=== PATIENT | male | born 1985 | race Caucasian/White ===

== ENCOUNTER 2023-10-07 06:56 | Inpatient (IN) ==
[2023-10-07] MEDS: SODIUM CHLORIDE 0.9% 1,000 ML IV SCH ×2 (07:17→11:27)
--- NOTE | 2023-10-07 07:24 | Emergency Department Note ---
History of Present Illness General Chief complaint: Overdose (Intentional) Stated complaint: OVERDOSE Time Seen by Provider: 10/07/23 07:03 Source: patient, family (Girlfriend who is at the bedside), EMS (I did talk to them and gave ALS prehospital medical command), RN notes reviewed and old records reviewed (10/05/23-primary care office visit for anxiety/depression) Mode of arrival: EMS History of Present Illness This patient is 38-year-old male who took an intentional overdose of Seroquel between 5 and 530 this morning there were 18 or 19 missing from a new bottle of 300 mg. Denies any coingestions. He tells me he was trying to get high. He comes in and he initially was a little bit agitated but now seems very calm he does answer questions appropriately seems mildly sleepy. Denies any physical complaints. Denies any coingestions drugs or alcohol. Home Medications Medication Instructions Recorded Confirmed Type multivitamin 1 tab PO DAILY 09/24/23 09/24/23 History quetiapine 300 mg tablet (Seroquel) 300 mg PO HS PRN insomnia #30 tabs 09/24/23 09/24/23 Rx trazodone 300 mg tablet 300 mg PO HS PRN insomnia #30 tabs 09/24/23 09/24/23 Rx Allergies Allergy/AdvReac Type Severity Reaction Status Date / Time No Known Drug Allergies Allergy Mild Verified 09/24/23 08:23 Past Med/Surg History Problem List (Updated 10/07/23 @ 09:13 by Tory Marina DO) Elevated CK Sinus tachycardia (Acute) Overdose (Acute) Elevated LFTs Anxiety and depression (Acute) Pain, dental GERD (gastroesophageal reflux disease) Vapes nicotine containing substance Alcohol dependence, binge pattern History of methamphetamine use (Acute) Bipolar 2 disorder, major depressive episode Posttraumatic stress disorder Acute insomnia Family History Mother Breast cancer Skin cancer Social History Smoking Status: Never smoker Tobacco Type: E-cigarettes / Vaping Age Started Using Tobacco: 11; Second Hand Exposure: Yes; Do You Dip or Chew Tobacco: No; Hx Alcohol Use: Yes Alcohol type: beer and hard liquor Alcohol Intake Frequency: 2-3 x/Week Hx Substance Use: No Preferred Language: [place] Citizen Communication Ability: Effective Visual Impairment: No Limitations Hearing Ability: Normal Piston Maker Required: No Beliefs That Will Affect Care: None marital status: Single Current Living Situation: Other Current Living Situation Comment: Roommate current occupational status: employed How many Children do You have: 2 Feels Safe at Home: Yes Childhood Exposure to Second-Hand Smoke: Yes Diet: regular caffeine: Yes during the past year weight has: remained stable Dental Care, Regularly: No Physical Activity Frequency: Daily Seatbelt Use: always Sunscreen Use: Yes Do you think of yourself as: straight/heterosexual Sexual Activity: has been sexually active within the last 12 months Gender Identity: Male Assistive Devices: None Review of Systems A total of 10 systems reviewed and were otherwise negative Physical Exam Vital Signs Vital Signs - 24 hr 10/07/23 07:00 10/07/23 07:02 10/07/23 07:02 Temperature 36.6 C Temperature Source Oral Pulse Rate 111 H 113 H Pulse Rate from SpO2 Sensor Respiratory Rate 12 Respiratory Depth Normal Blood Pressure 98/61 L 97/53 L Blood Pressure Mean 77 67 Pulse Oximetry 96 Oxygen Delivery Method Room Air Sepsis Recent Fever Within 48 Hours No Sepsis New/Unexplained Change in Mental Status No Sepsis Action Taken by Nursing No Action Required 10/07/23 07:03 10/07/23 07:04 10/07/23 07:04 Temperature Temperature Source Pulse Rate 114 H Pulse Rate from SpO2 Sensor 112 H Respiratory Rate 14 Respiratory Depth Blood Pressure 97/52 L 97/52 L Blood Pressure Mean 58 58 Pulse Oximetry 97 Oxygen Delivery Method Sepsis Recent Fever Within 48 Hours Sepsis New/Unexplained Change in Mental Status Sepsis Action Taken by Nursing 10/07/23 07:07 10/07/23 07:16 10/07/23 07:44 Temperature Temperature Source Pulse Rate 107 H Pulse Rate from SpO2 Sensor 106 H Respiratory Rate 11 L Respiratory Depth Normal Blood Pressure Blood Pressure Mean Pulse Oximetry 95 96 Oxygen Delivery Method Room Air Sepsis Recent Fever Within 48 Hours Sepsis New/Unexplained Change in Mental Status Sepsis Action Taken by Nursing 10/07/23 07:47 10/07/23 08:00 10/07/23 08:02 Temperature Temperature Source Pulse Rate 102 H 103 H Pulse Rate from SpO2 Sensor 102 H 104 H Respiratory Rate 8 L 8 L Respiratory Depth Blood Pressure 140/71 Blood Pressure Mean 79 Pulse Oximetry 97 97 Oxygen Delivery Method Sepsis Recent Fever Within 48 Hours Sepsis New/Unexplained Change in Mental Status Sepsis Action Taken by Nursing General: Well developed well nourished young male who appears mildly sleepy but answers all questions appropriate alert and orient x 3 protecting his airway, in no acute distress, breathing comfortably on room air. Normal speech HEENT: Normal cephalic atraumatic. Pupils are equal round and reactive to light. Extraocular movements are intact. Oropharynx is pink with moist mucous membranes. No swelling of the mouth lips or tongue. Neck: Supple with a midline trachea. No meningeal signs or stiffness, no JVD or bruits. No Stridor. Chest: Clear to auscultation bilaterally. No wheezes or rhonchi. No increased work of breathing. Heart: Regular rate and rhythm without murmurs or gallops. Abdomen: Soft nontender, nondistended without rebound guarding or rigidity. Extremities: No cyanosis clubbing or edema. No calf tenderness or assymetry Spine/Back. Non tender to palpation. No CVA tenderness Skin: Good turgor without rashes. Neurologic exam: Cranial nerves two through 12 are intact. Motor and sensation are intact and symmetrical throughout. No tremor Course Administered Medications Sodium Chloride (Nss) 1,000 mls @ 125 mls/hr IV .Q8H [facility] Stop: 10/08/23 00:44 Last Admin: 10/07/23 11:27 Dose: 125 mls/hr Documented By: LISA Discontinued Medications Sodium Chloride (Nss) 1,000 mls @ 999 mls/hr IV .Q1H1M [facility] Stop: 10/07/23 08:15 Last Infusion: 10/07/23 08:59 Dose: Infused Documented By: Admin: 10/07/23 07:17 Dose: 999 mls/hr Documented By: CATERINA Sodium Chloride (Nss) 1,000 mls @ 999 mls/hr IV .Q1H1M ONE Stop: 10/07/23 08:50 Last Infusion: 10/07/23 08:59 Dose: Infused Documented By: Admin: 10/07/23 07:55 Dose: 999 mls/hr Documented By: CATERINA Critical Care Time Critical Care Time: Yes Total Critical Care Time: 38 Due to the patient's overdose, continuing monitoring and need for further monitoring treatment and evaluation, I have personally spent greater than 38 minutes of critical care time in the direct management of this patient. This includes bedside care, interpretation of diagnostic studies, and testing, discussion with consultants, patient, and family members, and other required patient management activities. This 38 minutes is in excess of all separately billable procedures. Medical Decision Making Differential Diagnosis Overdose, intentional overdose, seizures, electrolyte or metabolic abnormality, infection, toxicologic, metabolic, depression Medical Records Attestation: I reviewed the patient's medical records. Home Medications Current Medication List: was personally reviewed by me Laboratory Data Attestation: I reviewed the patient's lab results. 10/07/23 07:14 10/07/23 07:14 Lab Results 10/07/23 Range/Units 07:14 WBC 7.77 (4.8-10.8) K/ul RBC 4.31 L (4.70-6.10) M/uL Hgb 14.0 (14.0-18.0) g/dl Hct 40.1 L (42.0-52.0) % MCV 93.0 (80.0-100.0) fL MCH 32.5 (25.0-34.0) pg MCHC 34.9 (32.0-36.0) g/dL RDW Std Deviation 45.7 (36.4-46.3) fL RDW Coeff of [place] 13.2 (11.5-14.5) % Plt Count 204 (130-400) K/uL MPV 9.6 (9.4-12.4) fL Immature Gran % (Auto) 0.3 % Neut % (Auto) 76.6 % Lymph % (Auto) 14.4 % Kinney % (Auto) 7.5 % Eos % (Auto) 0.6 % Baso % (Auto) 0.6 % Neut # (Auto) 5.95 (1.40-6.50) K/uL Lymph # (Auto) 1.12 L (1.20-3.40) K/uL Kinney # (Auto) 0.58 (0.11-0.59) K/uL Eos # (Auto) 0.05 (0.00-0.50) K/uL Baso # (Auto) 0.05 (0.00-0.20) K/uL Immature Gran # (Auto) 0.02 (0.01-0.20) K/uL PT 11.1 (9.0-12.0) Seconds INR 1.0 (0.9-1.1) Sodium 138 (136-145) mmol/L Potassium 4.2 (3.5-5.1) mmol/L Chloride 105 (98-107) mmol/L Carbon Dioxide 24 (21-32) mmol/L Anion Gap 9 (3-11) BUN 21 (6-23) mg/dl Creatinine 1.05 (0.6-1.4) mg/dl Est Cr Clr Drug Dosing 134.0 ml/min Est GFR ( Amer) 105.3 ml/min Est GFR (Non-Af Amer) 90.9 ml/min BUN/Creatinine Ratio 20.0 (10-20) Glucose 116 H (70-99(Fasting)) mg/dl Calcium 8.8 (8.6-10.3) mg/dl Magnesium 1.8 (1.7-2.4) mg/dl Total Bilirubin 0.5 (0.2-1.0) mg/dl AST 28 (13-39) U/L ALT 24 (7-52) U/L Alkaline Phosphatase 76 (34-104) U/L Total Creatine Kinase 596 H (30-223) U/L Troponin I High Sens 4.6 (0-20) pg/ml Total Protein 7.1 (6.0-8.3) gm/dl Albumin 4.6 (3.4-5.0) gm/dl Globulin 2.5 (2.5-4.0) gm/dl Albumin/Globulin Ratio 1.8 (0.9-2) Lipase 13 (11-82) U/L Salicylates < 3.0 L (3.0-30) mg/dl Acetaminophen < 3 L (10-30) ug/ml Ethyl Alcohol mg/dL < 10.0 (<10.0) mg/dl Imaging Data Attestation: I personally reviewed and interpreted this imaging study as follows: My Impression: Chest x-rayno acute infiltrate, failure, pneumothorax seen Radiologist's Impression: Chest X-Ray 10/07/23 07:07 XR chest 1V portable CLINICAL HISTORY: overdose TECHNIQUE: Single frontal radiograph of the chest was obtained. Comparison: None available at the time of this dictation. FINDINGS: No lines and tubes are seen. The cardiomediastinal silhouette is normal. The lungs are clear. No evidence of pleural effusion or pneumothorax. IMPRESSION: No acute chest disease. ACT 112: Negative or not required by law. Electronically signed by: Puma Noguera M.D. 10/07/2023 7:23 AM ECG Data Attestation: I personally reviewed and interpreted this ECG as follows: Indication: + toxicologic Rate (beats per minute): 112 Rhythm: + sinus tachycardia ECG Intervals/blocks: + Normal QRS, + Normal OK and + Normal QT-c ECG [place]: + Normal ECG ST segments: + Normal ST segments ECG Findings: no PACs or no PVCs Comparison ECG Date: no prior available Additional Comments: EKG #2: Sinus tachycardia rate of 105 no acute ischemic changes or ectopy. Normal QRS and QTc intervals. No change compared EKG number MDM Narrative This patient comes in as described above I did take ALS medical command the patient was placed in room B1 initially so we could evaluate him there and assess him. He seems stable upon arrival we did apply seizure precautions given the fact he took Seroquel. A full workup was obtained he was hydrated with normal saline boluses. I did talk to Lalita at the [place] [facility] she tells me that we need to watch him for 8 hours and if he is medically cleared at that point he can be cleared to psychiatry. At this point, she says is supportive care and benzos if he is agitated or seizes. He has no white count or fever to suggest infection. He has no significant anemia. His girlfriend did arrive and she is at the bedside. I talked to her at length as well. He has no fever or white count to suggest infection. He has no significant anemia. He has no significant electrolyte or metabolic abnormalities. CK is mildly elevated in the 500s he has been hydrated with IV normal saline. He has no significant toxicologic or metabolic abnormalities on the blood work. He remains very somnolent but does wake up he is continues to protect his airway. I did a repeat EKG and it shows no change in his intervals. Given his somnolence and need for multiple hours for medical clearance, I do think medical admission is warranted and then psychiatric evaluation after he is medically clear. I have discussed case with the hospitalist and they will observe/admit him for these measures. Continuous manager fixed income: Orders placed in EMR for continuous manager fixed income call upon my evaluation patient noted to be in sinus tachycardia with a rate of 110 Impression & Plan Overdose, History of methamphetamine use, Anxiety and depression, Sinus tachycardia Discharge Plan Visit Data Chief Complaint: Overdose (Intentional) Stated Complaint: OVERDOSE ED Provider: Dipak Liao Discharge Problem: Overdose, History of methamphetamine use, Anxiety and depression, Sinus tachycardia Discharge Instructions Interventions: ED Discharge Assessment Last Done: 10/07/23 10:32
[2023-10-07 07:29] LABS: Basophils # (auto) 0.05 K/uL (0.00-0.20); Basophils % (auto) 0.6 %; Eosinophils # (auto) 0.05 K/uL (0.00-0.50); Eosinophils % (auto) 0.6 %; Hematocrit (blood only) 40.1 % (42.0-52.0); Immature Granulocytes # (auto) 0.02 K/uL (0.01-0.20); Immature Granulocytes % (auto) 0.3 %; Lymphocytes # (auto) 1.12 K/uL (1.20-3.40); Lymphocytes % (auto) 14.4 %; Mean Corpuscular Hemoglobin 32.5 pg (25.0-34.0); Mean Corpuscular Hgb Conc 34.9 g/dL (32.0-36.0); Mean Platelet Volume 9.6 fL (9.4-12.4); Monocytes # (auto) 0.58 K/uL (0.11-0.59); Monocytes % (auto) 7.5 %; Neutrophils # (auto) 5.95 K/uL (1.40-6.50); Neutrophils % (auto) 76.6 %; Platelet Count 204 K/uL (130-400); RDW Coefficient of Variation 13.2 % (11.5-14.5); RDW Standard Deviation 45.7 fL (36.4-46.3); Red Blood Count 4.31 M/uL (4.70-6.10); White Blood Count 7.77 K/ul (4.8-10.8)
[2023-10-07 07:45] LABS: Albumin Globulin Ratio 1.8 (0.9-2); Albumin Level 4.6 gm/dl (3.4-5.0); Bilirubin,Total 0.5 mg/dl (0.2-1.0); Calcium 8.8 mg/dl (8.6-10.3); Est GFR (African American) 105.3 ml/min; Est GFR (Non-African American) 90.9 ml/min; Globulin 2.5 gm/dl (2.5-4.0); Magnesium 1.8 mg/dl (1.7-2.4); Potassium 4.2 mmol/L (3.5-5.1); Total Protein 7.1 gm/dl (6.0-8.3)
[2023-10-07 07:51] LABS: Troponin I High Sensitivity 4.6 pg/ml (0-20)
[2023-10-07] MEDS: SODIUM CHLORIDE 0.9% 1,000 ML IV ONE (07:55)
[2023-10-07 08:10] LABS: Prothrombin Time 11.1 Seconds (9.0-12.0)
[2023-10-07 08:18] LABS: Acetaminophen < 3 ug/ml (10-30); Salicylate < 3.0 mg/dl (3.0-30)
--- NOTE | 2023-10-07 08:54 | History & Physical Report ---
Date of Service October 07, 2023 Assessment & Plan (1) Overdose: Plan: - reported intentional overdose with Seroquel, limited history but no co- ingestion reported - initial acetaminophen/salicylate negative; repeat 4 hours after initial - per pt attempt to "get high", concern for SI per friend - QTc= 444; repeat EKG 1200- monitor on telemetry - seizure precautions - psych consulted, suicide precautions (2) Anxiety and depression: Plan: - hold Seroquel - psych consulted (3) Elevated CK: Plan: - mildly elevated CK; s/p 2L IVF in ED - continue maintenance fluids NSS @125ml/hr - repeat CK qAM (4) Alcohol dependence, binge pattern: Plan: - Unclear amount of alcohol pt is currently drinking - AWSS at risk protocol - supplement folate/thiamine (5) History of methamphetamine use: Plan: - unknown last time of use; UDS pending (6) Acute insomnia: Plan: - hold trazadone Plan Code: Full Diet: Regular VTE Prophylaxis: Lovenox History of Present Illness Primary Care Provider: Marla Trejo MD 38 year old male with a past medical history of LYDIA, MDD, bipolar 2, alcohol dependence, presenting with intensional overdose. He is arousable, but somnolent and answering minimal questions. History obtained from friend at bedside. At approximally 0500 this morning patient took about 19 300mg Seroquel. The prescription was filled yesterday and 19 were missing from the bottle. Friend notes that they were out at a bar last night and he has approximately 5 drinks. Unsure of amount of alcohol he drinks on average through out the week. Noted history of methamphetamine use, believes that last used 1 month ago. ED Course Significant for: CBC, CMP wnl. CK= 596. S/p 2L NSS. EKG with sinus tachycardia, QTc= 444. ED was in contact with poison control and recommend observation for at least 8 hours with serial EKGs. Allergies Allergy/AdvReac Type Severity Reaction Status Date / Time No Known Drug Allergies Allergy Mild Verified 09/24/23 08:23 Home Medications Medication Instructions Recorded Confirmed Type multivitamin 1 tab PO DAILY 09/24/23 09/24/23 History quetiapine 300 mg tablet (Seroquel) 300 mg PO HS PRN insomnia #30 tabs 09/24/23 09/24/23 Rx trazodone 300 mg tablet 300 mg PO HS PRN insomnia #30 tabs 09/24/23 09/24/23 Rx Past Med/Surg History Problem List (Updated 10/07/23 @ 09:13 by Tory Marina DO) Elevated CK Sinus tachycardia (Acute) Overdose (Acute) Elevated LFTs Anxiety and depression (Acute) Pain, dental GERD (gastroesophageal reflux disease) Vapes nicotine containing substance Alcohol dependence, binge pattern History of methamphetamine use (Acute) Bipolar 2 disorder, major depressive episode Posttraumatic stress disorder Acute insomnia Family History Mother Breast cancer Skin cancer Social History Smoking Status: Current every day smoker Tobacco Type: E-cigarettes / Vaping Age Started Using Tobacco: 11; Second Hand Exposure: Yes; Do You Dip or Chew Tobacco: No; Hx Alcohol Use: Yes Alcohol type: beer and hard liquor Alcohol Intake Frequency: 2-3 x/Week Hx Substance Use: Yes Preferred Language: Irish Communication Ability: Effective Visual Impairment: No Limitations Hearing Ability: Normal Dairy Farmer Required: No Beliefs That Will Affect Care: None marital status: Single Current Living Situation: Significant Other Current Living Situation Comment: Roommate current occupational status: employed How many Children do You have: 2 Feels Safe at Home: Yes Safety Concerns: Feels Safe At This Time Childhood Exposure to Second-Hand Smoke: Yes Diet: regular caffeine: Yes during the past year weight has: remained stable Dental Care, Regularly: No Physical Activity Frequency: Daily Seatbelt Use: always Sunscreen Use: Yes Do you think of yourself as: straight/heterosexual Sexual Activity: has been sexually active within the last 12 months Gender Identity: Male Assistive Devices: None Review of Systems Review of Systems: As per HPI Physical Exam Physical Exam: Constitutional: well-appearing, no acute distress HEENT: NCAT, no conjunctival injection, pinpoint pupils, PERRLA CV: regular rhythm, no murmur appreciated, extremities well-perfused, no LE edema Resp: CTABL, no wheezes/rales/rhonchi appreciated, no increased work of breathing GI: soft, nondistended, nontender MSK: no gross deformities appreciated Skin: warm, dry, no rash appreciated Neuro: alert, oriented, no focal neurologic deficit appreciated Results & Data Results & Data Vital Signs (Past 12 Hours) Vital Signs Temp Pulse Resp BP Pulse Ox O2 Del Method 10/07/23 08:27 105 H 10 L 97 10/07/23 08:02 103 H 8 L 97 10/07/23 08:00 140/71 10/07/23 07:47 102 H 8 L 97 10/07/23 07:44 107 H 11 L 96 10/07/23 07:16 95 Room Air 10/07/23 07:04 97/52 L 10/07/23 07:04 97/52 L 10/07/23 07:03 114 H 14 97 10/07/23 07:02 113 H 10/07/23 07:02 36.6 C 111 H 12 97/53 L 96 Room Air 10/07/23 07:00 98/61 L Supervising Physician Co-Signing Physician Notes I personally examined the patient and verified all bowers points of history and exam, discussed case, and agree with decision making with Dr Marina no meaningful HPI or ROS obtainable from pt. psychiatry input appreciated vitals noted awakens speaks a little bit in slurred ininteligable words but then drifts off. cardio reg no r/m/g lungs cta b/l no rrw good effort skin without rashes/pallor/icterus neuro without focal deficits/lateralizing signs QT ok, VBG reassuring, neuro exam nonfocal. seroquel OD - repeated APAP/salicylate since HPI not really obtainable from pt and polysubstance ingestion was possible - fortunately repeat levels also negative. supportive care, follow closely. once more awake and alert, psych input Resident Activity Tracking Resident Involvement: Resident Care Provided Care Provided: Adult Hospital Medicine
[2023-10-07] MEDS ORDERED: LORazepam 1 MG in SYRINGE 0.5 ML IV PRN (11:23)
--- NOTE | 2023-10-07 12:21 | Electrocardiogram Report ---
Test Reason : Blood Pressure : / mmHG Vent. Rate : 112 BPM Atrial Rate : 112 BPM P-R Int : 136 ms QRS Dur : 084 ms QT Int : 326 ms P-R-T Axes : 076 061 057 degrees QTc Int : 444 ms Sinus tachycardia Poor R wave progression, consider anterior MD vs. lead placement vs. LVH Abnormal ECG No previous ECGs available Confirmed by Chinmay Barragan ([id number]) on 10/07/2023 12:20:29 PM Referred By: REFERRED SELF Confirmed By:Chinmay Barragan
--- NOTE | 2023-10-07 12:30 | Electrocardiogram Report ---
Test Reason : Blood Pressure : / mmHG Vent. Rate : 105 BPM Atrial Rate : 105 BPM P-R Int : 132 ms QRS Dur : 084 ms QT Int : 336 ms P-R-T Axes : 072 027 035 degrees QTc Int : 444 ms Sinus tachycardia Poor R wave progression, consider anterior AL vs. lead placement vs. LVH Abnormal ECG When compared with ECG of 07-OCT-2023 07:01, (unconfirmed) No significant change was found Confirmed by Chinmay Barragan ([id number]) on 10/07/2023 12:29:58 PM Referred By: REFERRED SELF Confirmed By:Chinmay Barragan
--- NOTE | 2023-10-07 12:44 | Communication Note ---
Date of Service: October 07, 2023 Trey Muse is a 38-year-old white male history of bipolar 2 disorder, PTSD, alcohol use disorder with binge episodes, methamphetamine use disorder and re cent remission, nicotine dependence who presents with an intentional overdose of 19 300 mg pills of Seroquel in the context of alcohol intoxication and social stressors. On exam patient was somnolent and unable to engage in interview. In and out of consciousness. Collateral from roommate/friend Shreya ([phone]): They were drinking at the bar. Patient got upset and walked 2 miles home. He stopped at his ex-girlfriend's home and found her with another male and was acutely upset and irritable. Back at their home she saw him take 19 out of the 30 Seroquel pills. She called 911. He attempted to vomit the pills but was unable to get the pills out. Made a statement indicating "do not want to be here anymore". Reports prior to this event patient was acting normally and was not overtly irritable or angry. Patient is on probation and had a recent stint in [facility] for violating a PFA against an ex-girlfriend. Past service, dishonorably discharged. Concern for trauma. Has 2 children. Completed rehab 2 years ago. Has been sober from methamphetamine since leaving [facility]. On probation with weekly check ins. Limited social supports. Plan: We will reevaluate patient once he is lucid and can engage in the interview.
[2023-10-07 13:22] LABS: Amphetamines+Metham, Urine Neg (Neg); Barbiturates, Urine Neg (Neg); Benzodiazepine, Urine Neg (Neg); Cocaine, Urine Neg (Neg); Fentanyl, Urine Neg (Neg); MDMA (Ecstacy), Urine Neg (Neg); Marijuana, Urine Neg (Neg); Methadone, Urine Neg (Neg); Opiate, Urine Neg (Neg); Phencyclidine, Urine Neg (Neg)
[2023-10-07] MEDS: FOLIC ACID 1 MG TAB PO SCH (13:33)
[2023-10-07] MEDS: THIAMINE HCL 100 MG TAB PO SCH (13:34)
[2023-10-07 13:46] LABS: Acetaminophen < 3 ug/ml (10-30); Salicylate < 3.0 mg/dl (3.0-30)
[2023-10-07 14:48] LABS: Base Excess VBG -0.5 mEq/L; HCO3 VBG 24 mmol/L; Oxygen Saturation VBG 83.7 %; PCO2 VBG 39 mmHg (38-50); PO2 VBG 49 mmHg
--- NOTE | 2023-10-07 16:23 | Billing Data ---
Date of Service October 07, 2023 Coding Level of Care Code 56312 INT INP/OBS CARE
[2023-10-07] MEDS: ENOXAPARIN INJ 40 MG/0.4 ML SYR SQ SCH (16:38)
[2023-10-08 06:05] LABS: Albumin Globulin Ratio 2.1 (0.9-2); Albumin Level 4.4 gm/dl (3.4-5.0); BUN Creatinine Ratio 13.9 (10-20); Bilirubin,Total 1.4 mg/dl (0.2-1.0); Calcium 9.2 mg/dl (8.6-10.3); Creatinine Clr Calc Pharmacy 178.1 ml/min; Est GFR (African American) 133.9 ml/min; Est GFR (Non-African American) 115.5 ml/min; Globulin 2.1 gm/dl (2.5-4.0); Potassium 3.8 mmol/L (3.5-5.1); Total Protein 6.5 gm/dl (6.0-8.3)
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
--- NOTE | 2023-10-08 10:58 | Hospitalist Progress Note ---
Date of Service October 08, 2023 Assessment & Plan (1) Overdose: (2) Anxiety and depression: (3) Elevated CK: (4) Alcohol dependence, binge pattern: (5) History of methamphetamine use: (6) Acute insomnia: Plan Patient is a 38 y/o male with PMHx of MDD, LYDIA, BPD-2, alcohol dependence, and methamphetamine use (last time 1 month ago) who was admitted for Seroquel overdose. Seroquel Overdose - reported intentional overdose with Seroquel without co-ingestion - acetaminophen/salicylate negative x2 - UDS negative - Patient still drowsy but more awake and able to answer questions - Continue seizure precautions and suicide precautions until mental status back to baseline. - Psych consulted. Likely inpatient psychiatric hospitalization. LYDIA/MDD - hold Seroquel Elevated CK - mildly elevated CK at 596 that decreased to 303 in am labs - Continue am labs Alcohol Dependence, binge type - No withdrawal symptoms - Unclear amount of alcohol pt is currently drinking - AWSS at risk protocol - supplement folate/thiamine Insomnia - Hold home Trazodone given patient's drowsy state Code: Full Diet: Regular VTE Prophylaxis: Lovenox Admission and Anticipated Discharge Date Admission Date: October 07, 2023 Supervising Physician Co-Signing Physician Notes I personally examined the patient and verified all bowers points of history and exam, discussed case, and agree with decision making with Dr Edmond still no meaningful HPI or ROS obtainable from pt. Nursing and one-to-one notes that he is still fairly sedated. vitals noted Picking at things in the air a little bit but otherwise resting comfortably and does not appear agitated. No distress. Breathing unlabored no accessory muscle use good effort. Skin shows no rashes no pallor or icterus. Neuro without lateralizing signs at rest. seroquel OD - Slowly waking upstill not stable for discharge to inpatient psychiatry. Appreciate psychiatry input. Fortunately, other than fairly significant sedation, no other effects of the overdose have become manifest. EtOH abuse - Uncertain history. Thiamine and folate. Initially was on a WSS with Ativanbut given that his mental status was so altered from the Seroquel, we are continuing a WSS assessments, but would only medicate at physician driven recommendationsright now none. DVT prophylaxisLovenox Subjective Patient feeling more awake but still slightly groggy compared to his baseline. No pain at the moment. Denies any chest pain, shortness of breath, or any other new symptoms. No other concerns. Review of Systems Review of Systems: As per HPI Physical Exam Physical Exam: GENERAL: AAOx3, afebrile, calm, NAD CARDIO: RRR, no r/m/g RESPIRATORY: CTA b/l, no respiratory distress GI: soft, nontender, nondistended EXTREMITIES: mild tenderness in left calf and anterior aspect of dorsum of right foot which patient states is from hitting it recently, no swelling in b/l LE Results & Data Results & Data Vital Signs (Past 12 Hours) Vital Signs Temp Pulse Resp BP Pulse Ox O2 Del Method 10/08/23 08:00 36.6 C 80 18 120/67 95 Room Air 10/08/23 01:49 36.5 C 81 18 136/76 97 Room Air Resident Activity Tracking Resident Involvement: Resident Care Provided Care Provided: Adult Hospital Medicine
[2023-10-08] MEDS: FOLIC ACID 1 MG TAB PO SCH (11:14)
[2023-10-08] MEDS: THIAMINE HCL 100 MG TAB PO SCH (11:14)
--- NOTE | 2023-10-08 15:58 | Billing Data ---
Date of Service October 08, 2023 Coding Level of Care Code 50853 SUB INP/OBS CARE
--- NOTE | 2023-10-08 16:21 | Billing Data ---
Date of Service October 08, 2023 Coding Level of Care Code 25160 IN/OBS DISCH 30 MIN/LESS
--- NOTE | 2023-10-08 16:25 | Discharge Summary ---
Date of Service October 08, 2023 Admission HPI Per Admitting Provider 38 year old male with a past medical history of LYDIA, MDD, bipolar 2, alcohol dependence, presenting with intensional overdose. He is arousable, but somnolent and answering minimal questions. History obtained from friend at bedside. At approximally 0500 this morning patient took about 19 300mg Seroquel. The prescription was filled yesterday and 19 were missing from the bottle. Friend notes that they were out at a bar last night and he has approximately 5 drinks. Unsure of amount of alcohol he drinks on average through out the week. Noted history of methamphetamine use, believes that last used 1 month ago. ED Course Significant for: CBC, CMP wnl. CK= 596. S/p 2L NSS. EKG with sinus tachycardia, QTc= 444. ED was in contact with poison control and recommend observation for at least 8 hours with serial EKGs. Admission Exam Per Admitting Provider Constitutional: well-appearing, no acute distress HEENT: NCAT, no conjunctival injection, pinpoint pupils, PERRLA CV: regular rhythm, no murmur appreciated, extremities well-perfused, no LE edema Resp: CTABL, no wheezes/rales/rhonchi appreciated, no increased work of breathing GI: soft, nondistended, nontender MSK: no gross deformities appreciated Skin: warm, dry, no rash appreciated Neuro: alert, oriented, no focal neurologic deficit appreciated Principal Diagnosis Seroquel overdose Discharge Exam GENERAL: AAOx3, afebrile, calm, NAD CARDIO: RRR, no r/m/g RESPIRATORY: CTA b/l, no respiratory distress GI: soft, nontender, nondistended EXTREMITIES: mild tenderness in left calf and anterior aspect of dorsum of right foot which patient states is from hitting it recently, no swelling in b/l LE Discharge Data Allergies Allergy/AdvReac Type Severity Reaction Status Date / Time No Known Drug Allergies Allergy Mild Verified 09/24/23 08:23 Consultations 10/07/23 08:14 ED Decision to Admit Stat 10/07/23 09:11 Consult Psychiatry Routine Hospital Course (1) Overdose: (2) Anxiety and depression: (3) Elevated CK: (4) Alcohol dependence, binge pattern: (5) History of methamphetamine use: (6) Acute insomnia: Plan Patient is a 38 y/o male with PMHx of MDD, LYDIA, BPD-2, alcohol dependence, and methamphetamine use (last time 1 month ago) who was admitted for Seroquel overdose. Seroquel Overdose -- Resolved - reported intentional overdose with Seroquel without co-ingestion - Patient more awake and able to answer questions - Psych evaluated patient and concluded that patient is not a threat to himself and no inpatient psychiatric hospitalization is required - Will discharge home today with continued outpatient follow up with PCP and therapist LYDIA/MDD - Continue Seroquel Elevated CK -- Acute, improving - Improving after IVF Alcohol Dependence, binge type - No withdrawal symptoms - Advised continued supplement folate/thiamine after discharge Insomnia - May continue home Trazodone Will discharge home today. Total Time Total Time Spent Total Time Spent (In Minutes): As per attending attestation. Discharge Plan Discharge Items Patient Disposition: Home - Self-Care Reason For Visit: OVERDOSE Discharge Diagnosis: seroquel overdose improved Activity: Per Instructions section Non-emergency contact: Primary Care Provider and Psychiatrist Call non-emergency contact if: your symptoms worsen Follow-up/Referrals: Marla Trejo MD [Primary Care Provider] - Diet: Regular Addtl Attending Provider Instructions: follow up closely with your family physician; we'll work on getting you formal psychiatric care in the area as well - fortunately your PCP and their office are a very good team and should be able to serve you well as a "bridge" to formal psychiatry have labwork (CBC, CMP) drawn at your PCP's office next week Pending Studies at Discharge: No Stand-Alone [facility], Smoking Cessation Medications and DC Order Prescriptions: Continued multivitamin Tablet 1 tab PO DAILY quetiapine [Seroquel] 300 mg tablet 300 mg PO HS PRN (Reason: insomnia) Qty: 30 5RF trazodone 300 mg tablet 300 mg PO HS PRN (Reason: insomnia) Qty: 30 5RF Discharge Orders: Discharge Order (Routine); Ordered 10/08/23 Ordered By: Diaz Avery Admission Data Admit Date/Time: 10/07/23 08:25 Attending Provider: Diaz Avery Admit Provider: Tory Marina Primary Care Provider: Marla Trejo Other Providers: Marti Soni; Gama Merida; Yunior Delgado Jr; Alysha Moreland.; Vanita Robles; Levy Salcido; Diaz Avery Other Interventions: Discharge Summary Assessment (RN) Last Done: 10/08/23 16:22 Supervising Physician Co-Signing Physician Notes I personally examined the patient and verified all bowers points of history and exam, discussed case, and agree with decision making with Dr Edmond As the day progressed, patient woke up. Was very upset about being in the hospital and did not want to stay. Case discussed with psychiatrypatient is safe/stable for discharge to home from psychiatric perspective, inpatient psychiatric stay not warranted. Given that the main reason to keep him in the hospital medically still was his sedation which has now improvedstable for discharge to home, close outpatient follow-up. Will try to help facilitate psychiatric care. otherwise as above and as per progress note same date Resident Activity Tracking Resident Involvement: Resident Care Provided Care Provided: Adult Hospital Medicine
--- NOTE | 2023-10-08 16:39 | Billing Data ---
Date of Service October 08, 2023 Coding Level of Care Code 72900 IN/OBS DISCH 30 MIN/LESS
--- NOTE | 2023-10-08 22:14 | Electrocardiogram Report ---
Test Reason : Blood Pressure : / mmHG Vent. Rate : 100 BPM Atrial Rate : 100 BPM P-R Int : 136 ms QRS Dur : 090 ms QT Int : 352 ms P-R-T Axes : 064 010 035 degrees QTc Int : 454 ms Normal sinus rhythm Cannot rule out Anterior infarct (cited on or before 07-OCT-2023) Nonspecific ST abnormality Abnormal ECG When compared with ECG of 07-OCT-2023 08:56, No significant change was found Confirmed by Bassam Pryor ([id number]) on 10/08/2023 10:13:50 PM Referred By: REFERRED SELF Confirmed By:Bassam Pryor
--- NOTE | 2023-10-08 22:44 | Electrocardiogram Report ---
Test Reason : Blood Pressure : / mmHG Vent. Rate : 084 BPM Atrial Rate : 084 BPM P-R Int : 144 ms QRS Dur : 084 ms QT Int : 368 ms P-R-T Axes : 075 042 044 degrees QTc Int : 434 ms Normal sinus rhythm Cannot rule out Anterior infarct (cited on or before 07-OCT-2023) Abnormal ECG When compared with ECG of 07-OCT-2023 14:09, No significant change was found Confirmed by Bassam Pryor ([id number]) on 10/08/2023 10:44:12 PM Referred By: REFERRED SELF Confirmed By:Bassam Pryor
== END 2023-10-08 16:42 | disposition home or self-care (01) | DRG 918 ==
LOC: ED 06:56 → EDINP 08:25 → 2N 10:32
DX: F41.1 Generalized anxiety disorder; Z88.5 Allergy status to narcotic agent; F10.20 Alcohol dependence, uncomplicated; F31.81 Bipolar II disorder; R00.0 Tachycardia, unspecified; G47.00 Insomnia, unspecified; Y92.019 Unspecified place in single-family (private) house as the place of occurrence of the external cause; F15.21 Other stimulant dependence, in remission; U07.0 Vaping-related disorder; F17.290 Nicotine dependence, other tobacco product, uncomplicated; T50.992A Poisoning by other drugs, medicaments and biological substances, intentional self-harm, initial encounter; F43.10 Post-traumatic stress disorder, unspecified